=== PATIENT | female | born 1950 | race Caucasian/White ===

== ENCOUNTER → 2016-12-24 | Outpatient (CLI) | payer MEDICARE, OTHER | LOC: KOH-I 09:25 | DX: F17.210 Nicotine dependence, cigarettes, uncomplicated (principal); Z80.1 Family history of malignant neoplasm of trachea, bronchus and lung; R05 Cough; R42 Dizziness and giddiness | CPT/HCPCS: G0297 ==

== ENCOUNTER → 2020-09-25 | Outpatient (CLI) | payer MEDICARE, OTHER | LOC: KOH-I 09-17 11:00 | DX: F17.210 Nicotine dependence, cigarettes, uncomplicated (principal) | CPT/HCPCS: 71271 ==

== ENCOUNTER → 2020-10-30 | Outpatient (CLI) | payer MEDICARE, OTHER ==
[2020-10-30 16:22] LABS: RED BLOOD COUNT 4.5 M/UL (4.00-5.10); WHITE BLOOD COUNT 7.8 K/UL (4.5-11.0)
[2020-10-30 16:40] LABS: BUN/CREATININE RATIO 28 (0-10)
[2020-11-01 00:11] LABS: RHEUMATOID ARTHRITIS FACTOR 10.4 IU/mL (0.0-13.9)
== END ==
LOC: CT 12:46 → KOH-I 12:46 → LAB 12:46
PROVIDERS: Internal Medicine; Nurse Practitioner Family
DX: M27.2 Inflammatory conditions of jaws (principal); M54.2 Cervicalgia; M27.8 Other specified diseases of jaws; R22.0 Localized swelling, mass and lump, head; M25.50 Pain in unspecified joint
CPT/HCPCS: 36415; 70470; 70487; 70492; 73560; 80053; 83520; 85025; 85652; 86140; 86200; 86431; Q9967

== ENCOUNTER → 2021-04-30 | Outpatient (CLI) | payer MEDICARE, OTHER | LOC: HEART 5 14:41 | DX: I73.9 Peripheral vascular disease, unspecified (principal) ==